=== PATIENT | male | born 1965 | race Caucasian/White ===

== ENCOUNTER → 2019-05-20 | Outpatient (CLI) | payer OTHER ==
--- NOTE | 2019-05-20 09:27 | XR ---
EXAMINATION TYPE: XR chest 2V DATE OF EXAM: 05/20/2019 COMPARISON: 01/16/2011 TECHNIQUE: PA and lateral views submitted. HISTORY: Cough FINDINGS: Right basilar subsegmental atelectasis or infiltrate. No interstitial edema or pneumothorax. Heart si ze normal. No pleural effusion. Biapical pleural thickening. IMPRESSION: 1. Basilar atelectasis favored over pneumonia correlate clinically for confirmation.
== END | disposition home or self-care (01) ==
LOC: RADXRYALE 08:45
PROVIDERS: ATTEND Physician Assistant Medical
DX: R05 Cough (principal)
CPT/HCPCS: 71046

== ENCOUNTER → 2020-08-23 | Outpatient (CLI) | payer OTHER ==
--- NOTE | 2020-08-23 10:30 | XR ---
EXAMINATION TYPE: XR forearm LT DATE OF EXAM: 08/23/2020 COMPARISON: NONE HISTORY: Pain Two views of the forearm demonstrate that the osseous structures appear to be intact and the joint sp aces appear to be preserved. There is no acute fracture or dislocation. IMPRESSION: 1. No osseous abnormality
== END | disposition home or self-care (01) ==
LOC: RADXRYALE 09:49
PROVIDERS: ATTEND Physician Assistant Medical
DX: M79.632 Pain in left forearm (principal)

== ENCOUNTER → 2023-05-14 | Outpatient (CLI) | payer OTHER ==
--- NOTE | 2023-05-14 16:22 | XR ---
EXAMINATION TYPE: XR chest 2V DATE OF EXAM: 05/14/2023 COMPARISON: 05/20/2019 HISTORY: 57 year-old male [id number], shortness of breath TECHNIQUE: Frontal and lateral views FINDINGS: Heart normal size. Aorta and pulmonary vasculature within normal limits. Some strandy atelectasis lef t base. No consolidation or pleural effusion. IMPRESSION: No acute cardiopulmonary process.
== END | disposition home or self-care (01) ==
LOC: RADXRYALE 14:05
PROVIDERS: ATTEND Physician Assistant Medical
DX: R06.02 Shortness of breath (principal)
CPT/HCPCS: 71046